=== PATIENT | male | born 1955 | race African-American/Black ===

== ENCOUNTER 2016-07-04 09:34 | Emergency (ER) | payer OTHER ==
[~2016-07-04] VITALS: Ht 188 cm; Wt 90.7 kg
[~2016-07-04 09:34] MED LIST: IBUPROFEN800 MG ORAL; KEFLEX500 MG ORAL; LEVAQUIN750 MG ORAL; PERCOCET 5-3251 EACH ORAL; PROMETHAZINE-C118 M1 ORAL
[2016-07-04 09:51] VITALS: BP 108/62
--- NOTE | 2016-07-04 10:03 | Emergency Room Report ---
History of Present Illness General Chief Complaint: General Complaint Source: Patient Present Illness HPI Patient presents with complaints of a sensation of a draining sensation in the left upper chest Denies any pain or heaviness denies any shortness of breath Denies any fall or trauma Patient reports sensation of something liquid trickling down Points to the left upper chest area Ongoing for the past 3-4 days denies any fevers or chills denies any cough denies any medication Allergies: Coded Allergies: No Known Allergies (Unverified , 07/03/13) Patient History Past Medical History: see triage record Pertinent Family History: none Reviewed Nursing Documentation: PMH: Agreed, PSxH: Agreed Nursing Documentation-PMH Past Medical History: No History, Except For Hx Hypertension: Yes Hx Asthma: Yes Review of Systems All Other Systems: negative except mentioned in HPI Physical Exam Vital Signs Date Time Temp Pulse Resp B/P Pulse Ox O2 Delivery O2 Flow Rate FiO2 07/04/16 09:42 98.1 74 18 114/75 96 Room Air Sp02 EP Interpretation: reviewed, normal General Appearance: well appearing, no apparent distress Head: normocephalic, atraumatic Eyes: bilateral eye EOMI, bilateral eye PERRL ENT: hearing grossly normal, normal pharynx, TMs + canals normal, uvula midline Neck: full range of motion, supple, no meningismus, no bony tend Respiratory: lungs clear, normal breath sounds, no rhonchi, no respiratory distress, no retraction, no accessory muscle use Cardiovascular #1: normal peripheral pulses, regular rate, rhythm, no edema, no gallop, no JVD, no murmur Gastrointestinal: normal bowel sounds, non tender, soft, no mass, no organomegaly, non-distended, no guarding, no hernia, no pulsatile mass, no rebound Genitourinary: no CVA tenderness Musculoskeletal: normal inspection Neurologic: oriented x3, responsive, reimbursement manager III-XII nml as tested, motor strength/ tone normal, sensory intact Psychiatric: mood/affect normal Skin: normal color, no rash, warm/dry, palpation normal Lymphatic: normal inspection, no adenopathy Medical Decision Making Diagnostic Impression: Primary Impression: Chest pain ER Course Given the patient's complaints on presentation chest x-ray imaging was obtained along with EKG EKG was normal chest x-ray does not show any cavitating or any other lesions patient remains fairly asymptomatic I did not feel that any further blood work or imaging was required and the patient will have close outpatient followup EKG Diagnostic Results Rate: normal Rhythm: NSR ST Segments: no acute changes Rhythm Strip Diag. Results EP Interpretation: yes Rate: 77 Rhythm: NSR, no PVC's, no ectopy Chest X-Ray Diagnostic Results EP Interpretation: Yes Findings: no consolidation, no effusion, no pneumothorax Number of Views: 1 Last Vital Signs Date Time Temp Pulse Resp B/P Pulse Ox O2 Delivery O2 Flow Rate FiO2 07/04/16 09:51 98.5 68 18 108/62 98 Room Air Status: improved Disposition: HOME, SELF-CARE Condition: Improved Additional Instructions: Patient is provided with the discharge instructions notified to follow up with primary doctor in the next 2-3 days otherwise return to the er with any worsening symptoms. MELONY LIMA D.O. Jul 04, 2016 10:03
--- NOTE | 2016-07-04 10:40 | Diagnostic Imaging Report ---
Indication: Chest pain Technique: XRAY CHEST 1 V Comparison: 07/03/13 Findings: Cardiomediastinal silhouette is stable. There is no consolidation or pleural effusion. Osseous structures are stable. Impression: No acute cardiopulmonary disease.
[2016-07-04 11:03] VITALS: BP 110/60
--- NOTE | 2016-07-06 19:07 | Cardiology Report ---
APPROVED REPORT EKG Measurement Heart [id number] Normal sinus rhythm Normal ECG
== END 2016-07-04 11:03 | disposition home or self-care (01) ==
LOC: EMR 10:08
DX: R07.9 Chest pain, unspecified (principal); I10 Essential (primary) hypertension; J45.909 Unspecified asthma, uncomplicated
CPT/HCPCS: 71010; 93005; 99283

== ENCOUNTER 2016-12-07 16:10 | Emergency (ER) | payer OTHER ==
[~2016-12-07] VITALS: Ht 188 cm; Wt 90.7 kg
[2016-12-07 16:33] VITALS: BP 106/69
--- NOTE | 2016-12-07 16:55 | Emergency Room Report ---
History of Present Illness General Chief Complaint: Male Urogenital Problems Source: Patient Present Illness HPI 60-year-old male presents emergency department complaining of clear penile discharge and discomfort with urination x5 days. Patient states he had recent unprotected intercourse with 2 new sexual partners. Patient denies fevers chills, nausea, vomiting, testicular pain, penile lesions, tender palpable lymph nodes, abdominal pain, rashes or joint pain. Patient denies dysuria and describes his discomfort as "weird" sensation. Denies hematuria. he reports history of HIV he states his viral load is undetectable he cannot recall his last CD4 count however he states that it was really good and that he sees his infectious disease doctor every 3 months. Allergies: Coded Allergies: No Known Allergies (Unverified , 07/03/13) Patient History Past Medical History: see triage record Past Surgical History: none Pertinent Family History: none Immunizations: UTD Reviewed Nursing Documentation: PMH: Agreed, PSxH: Agreed Nursing Documentation-PMH Hx Hypertension: Yes Hx Asthma: Yes Review of Systems All Other Systems: negative except mentioned in HPI Physical Exam Vital Signs Date Time Temp Pulse Resp B/P Pulse Ox O2 Delivery O2 Flow Rate FiO2 12/07/16 16:23 98.1 68 15 106/69 96 Room Air Sp02 EP Interpretation: reviewed, normal General Appearance: no apparent distress, alert, GCS 15, non-toxic Head: normocephalic, atraumatic Eyes: bilateral eye PERRL, bilateral eye normal inspection ENT: hearing grossly normal, normal pharynx, no angioedema, normal voice Neck: full range of motion, supple/symm/no masses Respiratory: lungs clear, normal breath sounds, speaking full sentences Cardiovascular #1: regular rate, rhythm, no edema Rectal: deferred Genitourinary: normal inspection, no CVA tenderness, penis normal, scrotum normal, other - clear d/c noted from the penis, abas EMT was male chapperone Musculoskeletal: back normal, gait/station normal, normal range of motion, non- tender Neurologic: alert, oriented x3, responsive, motor strength/tone normal, sensory intact, speech normal Psychiatric: judgement/insight normal, memory normal, mood/affect normal Skin: normal color, no rash, warm/dry, well hydrated Lymphatic: no adenopathy Medical Decision Making PA Attestation Dr. fried is my supervising Physician whom patient management has been discussed with. Diagnostic Impression: Primary Impression: Urethritis ER Course Pt. presents to the ED c/o penile d/c x 1 week, HIV pos. recent unprotected . Ddx considered but are not limited to UTi , STI, G & C, trichomonas, urethritis Vital signs: are WNL, pt. is afebrile H&PE are most consistent with urethritis ORDERS: - UA: few bacteria, no appreciable WBC's or leukocytes. - Urine G & C: Pending ED INTERVENTIONS: -250mg Rocephin IM DISCHARGE: At this time pt. is stable for d/c to home. Will provide printed patient care instructions, and any necessary prescriptions. Care plan and follow up instructions have been discussed with the patient prior to discharge. Labs Test 12/07/16 16:33 Urine Color Yellow Urine Appearance Clear Urine pH 6 (4.5-8.0) Urine Specific [place] 1.015 (1.005-1.035) Urine Protein Negative (NEGATIVE) Urine Glucose (UA) Negative (NEGATIVE) Urine Ketones Negative (NEGATIVE) Urine Occult Blood 1+ (NEGATIVE) Urine Nitrite Negative (NEGATIVE) Urine Bilirubin Negative (NEGATIVE) Urine Urobilinogen 1 MG/DL (0.0-1.0) Urine Leukocyte Esterase 2+ (NEGATIVE) Urine RBC 0-2 /HPF (0 - 0) Urine WBC 2-4 /HPF (0 - 0) Urine Squamous Epithelial Cells None /LPF (NONE/OCC) Urine Bacteria Few /HPF (NONE) Last Vital Signs Date Time Temp Pulse Resp B/P Pulse Ox O2 Delivery O2 Flow Rate FiO2 12/07/16 16:33 98.1 15 106/69 96 Room Air 12/07/16 16:23 68 Disposition: HOME, SELF-CARE Condition: Stable Scripts Doxycycline Hyclate* (VIBRAMYCIN*) 100 Mg Capsule 100 MG ORAL EVERY 12 HOURS for 7 Days, #14 CAP 0 Refills Prov: Madison Russell 12/07/16 Patient Instructions: Urethritis, Adult Additional Instructions: Take medications as directed. Follow up with PCP in 3-5 days Return sooner to ED if new symptoms occur, or current symptoms become worse. - Please note that this Emergency Department Report was dictated using [employer] covering printer technology software, occasionally this can lead to erroneous entry secondary to interpretation by the dictation equipment. Madison Russell Dec 07, 2016 16:54
[2016-12-07 16:58] LABS: APPEARANCE,URINE CLEAR; KETONES,URINE NEGATIVE (NEGATIVE); LEUKOCYTE ESTERASE ,URINE 2+ (NEGATIVE); NITRITE,URINE NEGATIVE (NEGATIVE); PH,URINE 6 (4.5-8.0); PROTEIN,URINE NEGATIVE (NEGATIVE); UROBILINOGEN,URINE 1 MG/DL (0.0-1.0)
[2016-12-07] MEDS ORDERED: Lidocaine 1% MPF 10mg/ml 5ml ONE (17:06)
[2016-12-07 17:20] LABS: BACTERIA,URINE FEW /HPF; RBC,URINE 0-2 /HPF (0 - 0)
[2016-12-07] MEDS ORDERED: VIBRAMYCIN100 MG ORAL (17:28)
[2016-12-07 17:33] VITALS: BP 106/69
== END 2016-12-07 17:33 | disposition home or self-care (01) ==
LOC: EMR 16:52
DX: N34.2 Other urethritis (principal); I10 Essential (primary) hypertension; J45.909 Unspecified asthma, uncomplicated
CPT/HCPCS: 81003; 87491; 87590; 96372; 99283; J0696

== ENCOUNTER 2017-04-28 12:10 | Emergency (ER) | payer OTHER ==
[~2017-04-28] VITALS: Ht 188 cm; Wt 90.7 kg
[~2017-04-28 12:10] MED LIST changes: +VIBRAMYCIN100 MG ORAL
[2017-04-28 12:28] VITALS: BP 99/67
[2017-04-28] MEDS ORDERED: PREDNISONE20 MG ORAL (13:05)
[2017-04-28] MEDS ORDERED: PROAIR HFA8.5 GM INH (13:05)
[2017-04-28] MEDS ORDERED: PROMETHAZINE-D118 ML ORAL (13:05)
[2017-04-28 13:11] VITALS: BP 99/67
--- NOTE | 2017-04-28 14:02 | Diagnostic Imaging Report ---
Indication: COUGH Technique: One view of the chest Comparison: 07/04/2016 Findings: Lungs and pleural spaces are clear. Normal heart size. Tortuous aorta Impression: Negative
--- NOTE | 2017-04-28 15:44 | Emergency Room Report ---
History of Present Illness General Chief Complaint: Upper Respiratory Illness Source: Patient Present Illness HPI The patient is a 61-year-old male presenting for cough. He admits to history of asthma. He states that this has been ongoing for the past 3 days. Described as a dry cough. He has tried Mucinex which has not helped. He states that he has albuterol at home but has not used it. Pain is an 8/10 dull ache to the mid chest and occurs during coughing only. Pain does not radiate. He denies any other symptoms including nausea, vomiting, fever, chills, sore throat, hemoptysis Allergies: Coded Allergies: No Known Allergies (Unverified , 07/03/13) Patient History Past Medical History: see triage record Pertinent Family History: none Reviewed Nursing Documentation: PMH: Agreed, PSxH: Agreed Nursing Documentation-PMH Hx Hypertension: Yes Hx Asthma: Yes Review of Systems All Other Systems: negative except mentioned in HPI Physical Exam Vital Signs Date Time Temp Pulse Resp B/P (MAP) Pulse Ox O2 Delivery O2 Flow Rate FiO2 04/28/17 12:21 98.1 81 14 99/67 96 Room Air Sp02 EP Interpretation: reviewed, normal General Appearance: no apparent distress, alert, GCS 15, non-toxic Head: normocephalic, atraumatic Eyes: bilateral eye normal inspection, bilateral eye PERRL ENT: hearing grossly normal, normal pharynx, no angioedema, normal voice Neck: full range of motion, supple/symm/no masses Respiratory: chest non-tender, normal breath sounds, rhonchi - bilat, speaking full sentences Cardiovascular #1: regular rate, rhythm, no edema Musculoskeletal: back normal, gait/station normal, normal range of motion, non- tender Neurologic: alert, oriented x3, responsive, motor strength/tone normal, sensory intact, speech normal Psychiatric: judgement/insight normal, memory normal, mood/affect normal, no suicidal/homicidal ideation Skin: normal color, no rash, warm/dry, well hydrated Medical Decision Making PA Attestation Dr. Norris is my supervising physician. Patient management was discussed with my supervising physician Diagnostic Impression: Primary Impression: Bronchitis ER Course The patient is a 61-year-old male presenting for cough Differential diagnosis include but not limited to pharyngitis, sinusitis, AOM, bronchitis, PNA PE: afebrile. No tachypnea. No apparent distress. No TTP over maxillary or frontal sinuses. Lungs: diffuse rhonchi. No accessory muscle use. No resp distress Heart: RRR, no abnormal heart sounds Ears: external auditory canal clear. Non erythematous. Bilat TM intact. Cone of light present bilat. No bulging of TM. No serous fluid seen. no nasal D/C Nor cervical lymphad No tonsillar exudate. Uvula midline.Oropharynx non erythematous The patient will be discharged home with a prescription for albuterol, prednisone, and cough medication and will FU with PMD. ER precautions given Chest X-Ray Diagnostic Results Chest X-Ray Diagnostic Results : Chest X-Ray Ordered: Yes # of Views/Limited/Complete: 1 View Indication: Other - cough EP Interpretation: Yes JACOB Xray: Interpretation reviewed, by supervising MD, and agrees with findings. Interpretation: no consolidation, no effusion, no pneumothorax, no acute cardiopulmonary disease Impression: No acute disease Electronically Signed by: Haroon Zarate PA-C Last Vital Signs Date Time Temp Pulse Resp B/P (MAP) Pulse Ox O2 Delivery O2 Flow Rate FiO2 04/28/17 13:11 98.1 14 99/67 96 Room Air 04/28/17 12:28 81 Status: improved Disposition: HOME, SELF-CARE Condition: Improved Scripts D-Methorphan Hb/Prometh Hcl* (PROMETHAZINE-DM SYRUP*) 118 Ml Syrup 5 ML ORAL Q6H Y for For Cough, #118 ML 0 Refills Prov: TERZIAN,HAROON P.A. 04/28/17 Albuterol Sulfate* (PROAIR HFA*) 8.5 Gm Hfa.aer.ad 2 PUFFS INH Q6H, #8.5 GM 0 Refills Prov: TERZIAN,HAROON P.A. 04/28/17 Prednisone* (PREDNISONE*) 20 Mg Tablet 40 MG ORAL DAILY, #10 TAB Prov: TERZIAN,HAROON P.A. 04/28/17 Referrals: NON PHYSICIAN (PCP) Patient Instructions: Acute Bronchitis Additional Instructions: I discussed my findings with the patient. All questions and concerns have been answered. Treatment and medication compliance have been addressed. I advised the patient that they need to follow up with PMD in 3-5 days. Return to ED if pain remains or worsens, cough worsens or remains, you notice blood in your sputum, you notice wheezing, you experience a fever, or if needed for any reason. Patient verbalized understanding of discharge instructions. HAROON ZARATE Apr 28, 2017 15:44
== END 2017-04-28 13:24 | disposition home or self-care (01) ==
LOC: EMR 12:46
DX: J45.909 Unspecified asthma, uncomplicated (principal)
CPT/HCPCS: 71010; 99284

== ENCOUNTER 2017-05-13 15:50 | Emergency (ER) | payer OTHER ==
[~2017-05-13] VITALS: Ht 188 cm; Wt 90.7 kg
[~2017-05-13 15:50] MED LIST changes: +PREDNISONE20 MG ORAL; +PROAIR HFA8.5 GM INH; +PROMETHAZINE-D118 ML ORAL
[2017-05-13 16:14] VITALS: BP 103/67
[2017-05-13] MEDS ORDERED: CEPHALEXIN500 MG ORAL (17:13)
[2017-05-13] MEDS ORDERED: BACTRIM DS TAB1 EAC1 ORAL (17:13)
[2017-05-13 17:18] VITALS: BP 116/71
[2017-05-13] MEDS ORDERED: DESCOVY 200-251 EACH PO (17:25)
[2017-05-13] MEDS ORDERED: ASPIR 8181 MG ORAL (17:25)
[2017-05-13] MEDS ORDERED: AMLODIPINE BESY10 MG ORAL (17:25)
[2017-05-13] MEDS ORDERED: PREZCOBIX 8001 EACH PO (17:25)
[2017-05-13] MEDS ORDERED: DAILY VITE1 EACH ORAL (17:25)
[2017-05-13] MEDS ORDERED: LISINOPRIL20 MG ORAL (17:25)
--- NOTE | 2017-05-13 22:39 | Emergency Room Report ---
History of Present Illness General Chief Complaint: Skin Rash/Abscess Source: Patient Present Illness HPI The patient is a 61-year-old male presenting for possible insect bite. He states that he noticed pain and swelling to the skin on his abdomen yesterday. He did not see any insect. He denies any known injury to the area appeared. pain is an 8/10 dull ache and does not radiate. He denies other symptoms including N, V, F, chills, diarrhea, constipation Allergies: Coded Allergies: No Known Allergies (Unverified , 07/03/13) Patient History Past Medical History: see triage record Pertinent Family History: none Reviewed Nursing Documentation: PMH: Agreed, PSxH: Agreed Nursing Documentation-PMH Hx Hypertension: Yes Hx Asthma: Yes Review of Systems All Other Systems: negative except mentioned in HPI Physical Exam Vital Signs Date Time Temp Pulse Resp B/P (MAP) Pulse Ox O2 Delivery O2 Flow Rate FiO2 05/13/17 16:14 98.1 84 20 103/67 98 05/13/17 16:14 Room Air Sp02 EP Interpretation: reviewed, normal General Appearance: no apparent distress, alert, GCS 15, non-toxic Head: normocephalic, atraumatic Eyes: bilateral eye normal inspection, bilateral eye PERRL ENT: hearing grossly normal, normal pharynx, no angioedema, normal voice Neck: full range of motion, supple/symm/no masses Respiratory: chest non-tender, lungs clear, normal breath sounds, speaking full sentences Cardiovascular #1: regular rate, rhythm, no edema Gastrointestinal: normal bowel sounds, soft, non-distended, no guarding, tenderness - TTP over the mid abdomen where abscess is Rectal: deferred Musculoskeletal: back normal, gait/station normal, normal range of motion, non- tender, calf tenderness Neurologic: alert, oriented x3, responsive, motor strength/tone normal, sensory intact, speech normal Psychiatric: judgement/insight normal, memory normal, mood/affect normal, no suicidal/homicidal ideation Skin: rash - Mid abdomen there is 2cm induration, erythema with central elevation. TTP Medical Decision Making PA Attestation Dr. Browning is my supervising physician. Patient management was discussed with my supervising physician Diagnostic Impression: Primary Impression: Abscess ER Course The patient is a 61-year-old male presenting for possible insect bite Ddx considered include but not limited to insect bite, contact dermatitis, eczema, cellulitis PE: Afebrile. NAD Skin: There is a 2 cm indurated area to the mid right abdomen. Tender to palpation. There is a central elevation. No discharge. Otherwise abdomen is soft and nontender The patient is discharged home and will be treated with antibiotics. He is given indication to return for incision and drainage ER precautions are given Last Vital Signs Date Time Temp Pulse Resp B/P (MAP) Pulse Ox O2 Delivery O2 Flow Rate FiO2 05/13/17 17:18 98.1 81 20 116/71 100 Room Air Status: improved Disposition: HOME, SELF-CARE Condition: Improved Scripts Trimethoprim/Sulfamethoxazole 160/800* (BACTRIM DS TABLET*) 1 Each Tablet 1 TAB ORAL TWICE A DAY, #14 TAB Prov: TAZ ZARATE 05/13/17 Cephalexin* (KEFLEX*) 500 Mg Capsule 500 MG ORAL EVERY 12 HOURS, #14 CAP 0 Refills Prov: TAZ ZARATE 05/13/17 Referrals: [facility],REFERRING (PCP) Patient Instructions: Abscess Additional Instructions: I discussed my findings with the patient. All questions and concerns have been answered. Treatment and medication compliance have been addressed. I advised the patient that they need to follow up with PMD in 3-5 days. Return to ED if symptoms worsen, new symptoms arise, or if needed for any reason. Patient verbalized understanding of discharge instructions. TAZ ZARATE May 13, 2017 22:39
== END 2017-05-13 17:19 | disposition home or self-care (01) ==
LOC: EMR 17:09
DX: L02.211 Cutaneous abscess of abdominal wall (principal); I10 Essential (primary) hypertension
CPT/HCPCS: 99283

== ENCOUNTER 2017-05-24 10:54 | Emergency (ER) | payer OTHER ==
[~2017-05-24] VITALS: Ht 188 cm; Wt 93.0 kg
[~2017-05-24 10:54] MED LIST changes: +AMLODIPINE BESY10 MG ORAL; +ASPIR 8181 MG ORAL; +BACTRIM DS TAB1 EAC1 ORAL; +CEPHALEXIN500 MG ORAL; +DAILY VITE1 EACH ORAL; +DESCOVY 200-251 EACH PO; +LISINOPRIL20 MG ORAL; +PREZCOBIX 8001 EACH PO
[2017-05-24 11:22] VITALS: BP 130/89
[2017-05-24 11:55] LABS: APPEARANCE,URINE CLEAR; KETONES,URINE NEGATIVE (NEGATIVE); LEUKOCYTE ESTERASE ,URINE 1+ (NEGATIVE); NITRITE,URINE NEGATIVE (NEGATIVE); PH,URINE 8 (4.5-8.0); PROTEIN,URINE NEGATIVE (NEGATIVE); UROBILINOGEN,URINE NORMAL MG/DL (0.0-1.0)
[2017-05-24 12:07] LABS: BACTERIA,URINE OCCASIONAL /HPF; RBC,URINE 0-2 /HPF (0 - 0); SQUAMOUS EPITHELIAL CELL,UR OCCASIONAL /LPF (NONE/OCC)
[2017-05-24] MEDS ORDERED: KEFLEX500 MG ORAL (12:40)
[2017-05-24] MEDS ORDERED: DOXYCYCLINE MO100 MG ORAL (13:16)
[2017-05-24 13:20] VITALS: BP 124/68
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
== END 2017-05-24 13:20 | disposition home or self-care (01) ==
LOC: EMR 11:20
DX: S00.83XA Contusion of other part of head, initial encounter (principal); N34.2 Other urethritis; I10 Essential (primary) hypertension; J45.909 Unspecified asthma, uncomplicated; W50.0XXA Accidental hit or strike by another person, initial encounter; Y92.9 Unspecified place or not applicable
CPT/HCPCS: 70480; 81003; 99284

== ENCOUNTER 2017-09-20 09:26 | Emergency (ER) | payer OTHER ==
[~2017-09-20] VITALS: Ht 188 cm; Wt 93.0 kg
[~2017-09-20 09:26] MED LIST changes: +DOXYCYCLINE MO100 MG ORAL
[2017-09-20] MEDS ORDERED: DOXYCYCLINE MO100 MG ORAL (09:42)
[2017-09-20] MEDS ORDERED: Lidocaine 1% MPF 10mg/ml 5ml INJ ONE (09:45)
[2017-09-20 09:52] LABS: APPEARANCE,URINE CLEAR; BILIRUBIN, URINE NEGATIVE (NEGATIVE); GLUCOSE, URINE (UA) NEGATIVE (NEGATIVE); KETONES,URINE NEGATIVE (NEGATIVE); LEUKOCYTE ESTERASE ,URINE 2+ (NEGATIVE); NITRITE,URINE NEGATIVE (NEGATIVE); PH,URINE 5 (4.5-8.0); PROTEIN,URINE NEGATIVE (NEGATIVE); UROBILINOGEN,URINE NORMAL MG/DL (0.0-1.0)
[2017-09-20 09:54] VITALS: BP 117/84
[2017-09-20 09:54] LABS: COLOR,URINE YELLOW
--- NOTE | 2017-09-23 14:29 | Emergency Room Report ---
History of Present Illness General Chief Complaint: Male Urogenital Problems Source: Patient Present Illness HPI Patient is a 61-year-old male presented after increased dysuria. Patient said he had recent sexual intercourse and had a condom break. He stated after that he been having increased dysuria. He denies any hematuria. He denies any urinary hesitancy. He denies any urethral discharge. He denies vomiting or flank pain. Allergies: Coded Allergies: No Known Allergies (Unverified , 07/03/13) Patient History Past Medical History: see triage record Reviewed Nursing Documentation: PMH: Agreed; PSxH: Agreed Nursing Documentation-PMH Hx Hypertension: Yes Hx Asthma: Yes Review of Systems All Other Systems: negative except mentioned in HPI Physical Exam Vital Signs Date Time Temp Pulse Resp B/P (MAP) Pulse Ox O2 Delivery O2 Flow Rate FiO2 09/20/17 09:29 97.1 78 20 117/84 96 Room Air 97.2 General Appearance: well appearing, no apparent distress, alert, GCS 15 Head: normocephalic, atraumatic ENT: hearing grossly normal, normal voice Neck: full range of motion, supple Respiratory: no respiratory distress, speaking full sentences Gastrointestinal: normal inspection, non tender, soft Genitourinary: no CVA tenderness Musculoskeletal: no calf tenderness Neurologic: normal inspection, alert, oriented x3, responsive, job press operator III-XII nml as tested, motor strength/tone normal, normal gait Psychiatric: normal inspection, mood/affect normal Skin: no rash Medical Decision Making Diagnostic Impression: Primary Impression: Urethritis ER Course Patient presented for dysuria. Differential diagnosis included was not limited to appendicitis, urinary tract infection,urethritis, herpes among others. The because patient's history patient will be empiric treated for bacterial urethritis. The patient is advised to follow up with primary care doctor in 1- 2 days. Patient is advised to return if any worsening condition or if any changes in status that are concerning. This report is dictated with blabfeed anatomical embalmer software which may occasionally lead to discrepancies related to use of this software. Labs Test 09/20/17 09:33 Urine Color Yellow Urine Appearance Clear Urine pH 5 (4.5-8.0) Urine Specific [place] 1.015 (1.005-1.035) Urine Protein Negative (NEGATIVE) Urine Glucose (UA) Negative (NEGATIVE) Urine Ketones Negative (NEGATIVE) Urine Occult Blood 1+ (NEGATIVE) Urine Nitrite Negative (NEGATIVE) Urine Bilirubin Negative (NEGATIVE) Urine Urobilinogen Normal MG/DL (0.0-1.0) Urine Leukocyte Esterase 2+ (NEGATIVE) Urine RBC 0-2 /HPF (0 - 0) Urine WBC 2-4 /HPF (0 - 0) Urine Squamous Epithelial Cells Occasional /LPF Urine Bacteria Few /HPF (NONE) Last Vital Signs Date Time Temp Pulse Resp B/P (MAP) Pulse Ox O2 Delivery O2 Flow Rate FiO2 09/20/17 09:54 97.2 20 117/84 96 Room Air 97.2 09/20/17 09:29 78 Status: improved Disposition: HOME, SELF-CARE Condition: Stable Scripts Doxycycline Monohydrate* (DOXYCYCLINE MONOHYDRATE*) 100 Mg Capsule 100 MG ORAL Q12H, #14 CAP 0 Refills Prov: Jm Rivas 09/20/17 Referrals: [facility],REFERRING (PCP) Patient Instructions: Urethritis, Adult mJ Rivas Sep 23, 2017 14:29
== END 2017-09-20 09:56 | disposition home or self-care (01) ==
LOC: EMR 09:43
DX: N34.2 Other urethritis (principal); I10 Essential (primary) hypertension; J45.909 Unspecified asthma, uncomplicated
CPT/HCPCS: 81003; 96372; 99283; J0696

== ENCOUNTER 2018-08-03 14:30 | Emergency (ER) | payer OTHER ==
[~2018-08-03] VITALS: Ht 188 cm; Wt 90.7 kg
[2018-08-03 14:30] VITALS: BP 130/65
--- NOTE | 2018-08-03 14:39 | NUR ---
ED Nurse Note: walked in to ED due to painful urination since today. Rating the pain a 8/10. A + O x4. Ambulatory.
[2018-08-03] MEDS ORDERED: UNOBMED (14:42)
--- NOTE | 2018-08-03 14:51 | Emergency Room Report ---
History of Present Illness General Chief Complaint: Male Urogenital Problems Source: Medical Record Present Illness HPI Patient is a 62-year-old male presented after increased dysuria as well as frequent urination. Denies any testicular swelling. He reports having recent unprotected sex. Patient states that he is HIV positive and has not had any prior history of herpes. patient reports having undetectable viral load and normal CD4 count. Allergies: Coded Allergies: No Known Allergies (Unverified , 07/03/13) Patient History Past Medical History: see triage record Reviewed Nursing Documentation: PMH: Agreed; PSxH: Agreed Nursing Documentation-PMH Past Medical History: No History, Except For Hx Hypertension: Yes Hx Asthma: Yes Review of Systems All Other Systems: negative except mentioned in HPI Physical Exam Vital Signs Date Time Temp Pulse Resp B/P (MAP) Pulse Ox O2 Delivery O2 Flow Rate FiO2 08/03/18 14:39 98.2 89 18 127/89 99 Room Air General Appearance: well appearing, no apparent distress, alert, GCS 15, non- toxic Head: normocephalic, atraumatic ENT: hearing grossly normal, normal voice Neck: full range of motion, supple Respiratory: no respiratory distress, speaking full sentences Gastrointestinal: normal inspection Musculoskeletal: no calf tenderness Neurologic: normal inspection, alert, oriented x3, responsive, normal gait Psychiatric: mood/affect normal Skin: no rash Medical Decision Making Diagnostic Impression: Primary Impression: Urethritis ER Course Patient presented for dysuria. Differential diagnosis included was not limited to appendicitis, urinary tract infection, urethritis, herpes among others. Patient was noted to have recent unprotected sex and symptoms consistent with a urethritis. Patient will be given IM antibiotics as well as prescription for doxycycline. Patient advised to follow-up for further STD testing. Last Vital Signs Date Time Temp Pulse Resp B/P (MAP) Pulse Ox O2 Delivery O2 Flow Rate FiO2 08/03/18 14:39 98.2 89 18 127/89 99 Room Air Status: improved Disposition: HOME, SELF-CARE Condition: Stable Jm Rivas MD Aug 03, 2018 14:51
[2018-08-03] MEDS ORDERED: DOXYCYCLINE MO100 MG ORAL (14:52)
[2018-08-03] MEDS ORDERED: Lidocaine 1% MPF 10mg/ml 5ml INJ ONE (15:00)
--- NOTE | 2018-08-03 15:18 | NUR ---
ER DISCHARGE NOTE: Patient is cleared to be discharged per ERMD, pt is aox4, on room air, with stable vital signs. pt was given dc and prescription instructions, pt was able to verbalize understanding, pt id band removed without complications. pt is able to ambulate with steady gait. pt took all belongings.
[2018-08-03 15:29] VITALS: BP 130/87
[2018-08-03 15:32] LABS: APPEARANCE,URINE CLEAR; BILIRUBIN, URINE NEGATIVE (NEGATIVE); GLUCOSE, URINE (UA) NEGATIVE (NEGATIVE); KETONES,URINE NEGATIVE (NEGATIVE); LEUKOCYTE ESTERASE ,URINE 2+ (NEGATIVE); NITRITE,URINE NEGATIVE (NEGATIVE); PH,URINE 6 (4.5-8.0); PROTEIN,URINE NEGATIVE (NEGATIVE); UROBILINOGEN,URINE 1 MG/DL (0.0-1.0)
[2018-08-03 15:40] LABS: COLOR,URINE YELLOW
== END 2018-08-03 15:18 | disposition home or self-care (01) ==
LOC: EMR 15:11
DX: N34.2 Other urethritis (principal); I10 Essential (primary) hypertension; J45.909 Unspecified asthma, uncomplicated
CPT/HCPCS: 81003; 96372; 96374; 99284; J0696

== ENCOUNTER 2018-10-28 09:12 | Emergency (ER) | payer OTHER ==
[~2018-10-28] VITALS: Ht 188 cm; Wt 86.2 kg
[~2018-10-28 09:12] MED LIST changes: +UNOBMED
[2018-10-28 09:31] VITALS: BP 126/89
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
[2018-10-28] MEDS ORDERED: IBUPROFEN600 MG ORAL (10:23)
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
[2018-10-28 10:55] VITALS: BP 126/89
--- NOTE | 2018-10-28 10:57 | NUR ---
ER DISCHARGE NOTE:head CT was done Patient is cleared to be discharged per ERMD, pt is aox4, on room air, with stable vital signs. pt was given dc and prescription instructions, pt was able to verbalize understanding, pt is able to ambulate with steady gait. pt took all belongings.
== END 2018-10-28 10:57 | disposition home or self-care (01) ==
LOC: EMR 09:50
DX: S00.83XA Contusion of other part of head, initial encounter (principal); Y04.2XXA Assault by strike against or bumped into by another person, initial encounter; Y92.9 Unspecified place or not applicable; I10 Essential (primary) hypertension; J45.909 Unspecified asthma, uncomplicated
CPT/HCPCS: 70450; 99284

== ENCOUNTER 2019-02-22 16:13 | Emergency (ER) | payer OTHER ==
[~2019-02-22] VITALS: Ht 188 cm; Wt 90.7 kg
[~2019-02-22 16:13] MED LIST changes: +IBUPROFEN600 MG ORAL
--- NOTE | 2019-02-22 16:29 | NUR ---
ED Nurse Note:pt. came with c/o left hip w/o injury and painfull urinations for 2 days, urine sent to labs
[2019-02-22 16:30] VITALS: BP 112/82
--- NOTE | 2019-02-22 16:42 | NUR ---
ED Nurse Note: Patient returned ftrom xray
--- NOTE | 2019-02-22 16:43 | NUR ---
ED Nurse Note:x-ray done
[2019-02-22 16:51] LABS: APPEARANCE,URINE CLEAR; BILIRUBIN, URINE NEGATIVE (NEGATIVE); GLUCOSE, URINE (UA) NEGATIVE (NEGATIVE); KETONES,URINE NEGATIVE (NEGATIVE); LEUKOCYTE ESTERASE ,URINE 1+ (NEGATIVE); NITRITE,URINE NEGATIVE (NEGATIVE); PH,URINE 7 (4.5-8.0); PROTEIN,URINE NEGATIVE (NEGATIVE); UROBILINOGEN,URINE 4 MG/DL (0.0-1.0)
[2019-02-22 17:00] LABS: COLOR,URINE YELLOW
--- NOTE | 2019-02-22 17:12 | Diagnostic Imaging Report ---
Indication: Left hip pain Technique: 2 views of the left, one view the pelvis hip Comparison: none Findings: No acute fractures. No dislocations. The joint spaces are preserved. Impression: No acute process
--- NOTE | 2019-02-22 17:14 | Emergency Room Report ---
History of Present Illness General Chief Complaint: Pain Source: Patient (Madison Russell) Present Illness HPI 63 YO Male presents to the ED c/o 12/21 in severity Dysuria x 2 Days. He reports recent unprotected intercourse and describes a condom breaking. Patient states he had symptoms shortly after. Patient reports that also right after intercourse he began to have left hip pain. Patient denies trauma or fall , bruising, erythema or warmth. Patient denies swelling. He denies Abdominal pain or tenderness. Denies urgency or hematuria. Patient denies genital lesions , rashes, testicular pain or swelling, penile discharge or swollen tender lymph nodes. Patient is HIV positive he reports that his counts are normal. He denies fevers or chills. (Madison Russell) Allergies: Coded Allergies: No Known Allergies (Unverified , 07/03/13) Patient History Past Medical History: HIV Past Surgical History: none Pertinent Family History: none Reviewed Nursing Documentation: PMH: Agreed; PSxH: Agreed (Madison Russell) Nursing Documentation-PMH Past Medical History: No History, Except For Hx Hypertension: Yes Hx Asthma: Yes (Madison Russell) Review of Systems All Other Systems: negative except mentioned in HPI (Madison Russell) Physical Exam Vital Signs Date Time Temp Pulse Resp B/P (MAP) Pulse Ox O2 Delivery O2 Flow Rate FiO2 02/22/19 16:14 97.7 86 18 112/82 (92) 98 Room Air Sp02 EP Interpretation: reviewed, normal General Appearance: no apparent distress, alert, GCS 15, non-toxic Head: normocephalic, atraumatic Eyes: bilateral eye normal inspection, bilateral eye PERRL ENT: hearing grossly normal, normal voice Neck: full range of motion Respiratory: lungs clear, normal breath sounds, speaking full sentences Cardiovascular #1: regular rate, rhythm Gastrointestinal: normal bowel sounds, non tender, soft, non-distended, no guarding Rectal: deferred Genitourinary: normal inspection, no CVA tenderness, deferred - pt. declines genital exam/ denies d/c or symptoms. Musculoskeletal: back normal, gait/station normal, normal range of motion, tender - TTP to the lateral aspect of the Left hip, no bruises, swelling or obvious deformity. pt. able to bear weight. Neurologic: alert, oriented x3, responsive, motor strength/tone normal, sensory intact, normal gait, speech normal, grossly normal Psychiatric: judgement/insight normal Skin: no rash Lymphatic: no adenopathy (Madison Russell) Medical Decision Making PA Attestation Dr. Gaines Is my supervising Physician whom patient management has been discussed with. (Madison Russell) Diagnostic Impression: Primary Impression: Urethritis Additional Impression: Hip pain, left ER Course 63 YO Male presents to the ED c/o 12/21 in severity Dysuria x 2 Days. He reports recent unprotected intercourse and describes a condom breaking. Patient states he had symptoms shortly after. Patient reports that also right after intercourse he began to have left hip pain. Patient denies trauma or fall , bruising, erythema or warmth. Patient denies swelling. He denies Abdominal pain or tenderness. Denies urgency or hematuria. Patient denies genital lesions , rashes, testicular pain or swelling, penile discharge or swollen tender lymph nodes. Patient is HIV positive he reports that his counts are normal. He denies fevers or chills. Ddx considered but are not limited to UTi , Urethritis, LGV, STI, Stone, Cystitis, prostatitis Vital signs: are WNL, pt. is afebrile H&PE are most consistent with Urethritis ORDERS: - UA : RBC's and blood, no bacteria. - Left Hip X-ray : WNL- arthritic. ED INTERVENTIONS: -250mg Rocephin IM -I do not identify an emergent condition at this time. With current presentation , pt. is stable for close outpatient follow up and conservative treatment. D/ w pt. to return promptly to ED with worsening or new symptoms.- Pt. verbalizes' understanding and agreement with proposed treatment plan.proposed treatment plan. DISCHARGE: At this time pt. is stable for d/c to home. Will provide printed patient care instructions, and any necessary prescriptions. Care plan and follow up instructions have been discussed with the patient prior to discharge. Labs Test 02/22/19 16:21 Urine Color Yellow Urine Appearance Clear Urine pH 7 (4.5-8.0) Urine Specific [place] 1.005 (1.005-1.035) Urine Protein Negative (NEGATIVE) Urine Glucose (UA) Negative (NEGATIVE) Urine Ketones Negative (NEGATIVE) Urine Blood 5+ (NEGATIVE) Urine Nitrite Negative (NEGATIVE) Urine Bilirubin Negative (NEGATIVE) Urine Urobilinogen 4 MG/DL (0.0-1.0) Urine Leukocyte Esterase 1+ (NEGATIVE) Urine RBC 20-30 /HPF (0 - 0) Urine WBC 2-4 /HPF (0 - 0) Urine Squamous Epithelial Cells None /LPF (NONE/OCC) Urine Bacteria Few /HPF (NONE) (Madison Russell) Other X-Ray Diagnostic Results Other X-Ray Diagnostic Results : X-Ray ordered: Left Hip # of Views/Limited Vs Complete: 3 View Indication: Pain EP Interpretation: Yes PA Xray: Interpretation reviewed, by supervising MD, and agrees with findings. Interpretation: no dislocation, no soft tissue swelling, no fractures Impression: No acute disease Electronically Signed by: Madison Russell PA-C (Madison Russell) Other X-Ray Diagnostic Results : Electronically Signed by: Marleen Box documentation of Xray reviewed by me and is accurate, Gene Gaines MD (Gene Gaines MD) Last Vital Signs Date Time Temp Pulse Resp B/P (MAP) Pulse Ox O2 Delivery O2 Flow Rate FiO2 02/22/19 16:30 97.7 79 18 112/82 98 Room Air (Madison Rsusell) Disposition: HOME, SELF-CARE Condition: Stable Scripts Doxycycline Hyclate* (VIBRAMYCIN*) 100 Mg Capsule 100 MG ORAL EVERY 12 HOURS for 7 Days, #14 CAP 0 Refills Prov: Madison Russell 02/22/19 Patient Instructions: Urethritis, Adult Additional Instructions: Take medications as directed. Follow up with a Primary Care Provider in 3-5 days, even if your symptoms have resolved. --Please review list of primary care clinics, if you do not already have a primary care provider Return sooner to ED if new symptoms occur, or current symptoms become worse. - Please note that this Emergency Department Report was dictated using Taggablerevenue specialist technology software, occasionally this can lead to erroneous entry secondary to interpretation by the dictation equipment. Madison Russell Feb 22, 2019 17:14 Gene Gaines MD Feb 23, 2019 06:37
[2019-02-22] MEDS ORDERED: Phenazopyridine 200mg tab ORAL ONE (17:15)
[2019-02-22] MEDS ORDERED: Lidocaine 1% MPF 10mg/ml 5ml INJ ONE (17:15)
[2019-02-22] MEDS ORDERED: VIBRAMYCIN100 MG ORAL (17:16)
--- NOTE | 2019-02-22 17:26 | NUR ---
ED Nurse Note: Injection correction administered to the right upper outer quadrant of buttock.
--- NOTE | 2019-02-22 17:35 | NUR ---
ER DISCHARGE NOTE: Patient is cleared to be discharged per ERMD, pt is aox4, on room air, with stable vital signs. pt was given dc and prescription instructions, pt was able to verbalize understanding, pt is able to ambulate with steady gait. pt took all belongings.
[2019-02-22 17:47] VITALS: BP 112/82
== END 2019-02-22 17:49 | disposition home or self-care (01) ==
LOC: EMR 16:50
DX: N34.2 Other urethritis (principal); M25.552 Pain in left hip; J45.909 Unspecified asthma, uncomplicated; I10 Essential (primary) hypertension; B20 Human immunodeficiency virus [HIV] disease
CPT/HCPCS: 73510; 81003; 96372; 96374; J0696; Z7502; 73502; 99284

== ENCOUNTER 2019-08-27 08:46 | Emergency (ER) | payer OTHER ==
[~2019-08-27] VITALS: Ht 188 cm; Wt 90.7 kg
[2019-08-27 09:00] VITALS: BP 147/98
--- NOTE | 2019-08-27 09:00 | NUR ---
ED Nurse Note: Pt ambulated to ED from home with the c/o penile discharge. Pt denies pain or swelling, VSS, on triage. Placed on bed, Dr. Rivas at bedside.
[2019-08-27] MEDS ORDERED: DOXYCYCLINE MO100 MG ORAL (09:06)
[2019-08-27 09:13] VITALS: BP 144/98
--- NOTE | 2019-08-27 09:13 | NUR ---
ER DISCHARGE NOTE: Patient is cleared to be discharged per ERMD, pt is aox4, on room air, with stable vital signs. pt was given dc and prescription instructions, pt was able to verbalize understanding, pt id band removed. pt is able to ambulate with steady gait. pt took all belongings.
[2019-08-27] MEDS ORDERED: Lidocaine 1% MPF 10mg/ml 5ml INJ ONE (09:15)
--- NOTE | 2019-08-27 09:24 | Emergency Room Report ---
History of Present Illness General Chief Complaint: Male Urogenital Problems Source: Patient Present Illness HPI Patient is a 63 -year-old male presents after increased urethral discharge. Patient reports having increased dysuria. He had prior history of recent sex which she states condom broke. Denies any urinary hesitancy. Had not had any known testicular swelling. Patient is uncircumcised. He had not been having any penile pain. Reports having some urethral discharge which was mostly clear. Denies any other locations of pain. He states his CD4 count is normal and his viral load is undetectable. He reports being compliant with his medications. COVID-19 risk:Travel to affect: No Has patient experienced rubin: No Allergies: Coded Allergies: No Known Allergies (Unverified , 07/03/13) Patient History Past Medical History: see triage record Reviewed Nursing Documentation: PMH: Agreed; PSxH: Agreed Nursing Documentation-PMH Past Medical History: No History, Except For Hx Hypertension: Yes Hx Asthma: Yes Review of Systems All Other Systems: negative except mentioned in HPI Physical Exam Vital Signs Date Time Temp Pulse Resp B/P (MAP) Pulse Ox O2 Delivery O2 Flow Rate FiO2 08/27/19 08:56 97.3 92 18 147/98 (114) 97 Room Air General Appearance: well appearing, no apparent distress, alert, GCS 15 Head: normocephalic, atraumatic ENT: hearing grossly normal, normal voice Neck: full range of motion, supple Respiratory: lungs clear, normal breath sounds, no respiratory distress, speaking full sentences Gastrointestinal: normal inspection Genitourinary: other - Urethral discharge, uncircumcised male without any evidence of skin lesions Musculoskeletal: no calf tenderness Neurologic: normal gait Psychiatric: mood/affect normal Skin: no rash Medical Decision Making Diagnostic Impression: Primary Impression: Urethritis Additional Impression: Abnormal urogenital findings ER Course Patient presented for urethral discharge. Differential diagnosis include was not limited to urinary tract infection, urethritis, balanitis among others. Patient has a benign exam and does not appear to require any imaging or laboratory testing at this time. Patient appears to have urethral discharge consistent with sexual transmitted infection. Will be empirically treated for gonorrhea and chlamydia. Urinalysis was ordered due to patient's recent urinary symptoms. Patient was given prescription for doxycycline. He was advised to follow-up with his infectious disease doctor in the next few days. Advised to return if worse. The patient is advised to follow up with doctor in 1-2 days. Patient is advised to return if any worsening condition or if any changes in status that are concerning. This report is dictated with ActiViews dice manager software which may occasionally lead to discrepancies related to use of this software. Last Vital Signs Date Time Temp Pulse Resp B/P (MAP) Pulse Ox O2 Delivery O2 Flow Rate FiO2 08/27/19 09:13 97.3 68 20 144/98 99 Room Air Status: improved Disposition: HOME, SELF-CARE Condition: Stable Scripts Doxycycline Monohydrate* (DOXYCYCLINE MONOHYDRATE*) 100 Mg Capsule 100 MG ORAL Q12H, #20 CAP 0 Refills Prov: Jm Rivas MD 08/27/19 Referrals: NON PHYSICIAN (PCP) Patient Instructions: Urethritis, Adult Jm Rivas MD Aug 27, 2019 09:24
== END 2019-08-27 09:13 | disposition home or self-care (01) ==
LOC: EMR 09:10
DX: N34.2 Other urethritis (principal)
CPT/HCPCS: 96372; 96374; J0696; Z7502; 99284

== ENCOUNTER 2020-03-23 16:28 | Emergency (ER) | payer OTHER ==
[~2020-03-23] VITALS: Ht 188 cm; Wt 85.7 kg
[2020-03-23 16:41] VITALS: BP 106/74
--- NOTE | 2020-03-23 16:41 | NUR ---
ED Nurse Note: Pt walked in to ED c/o lower abdomial pain for x1 day. Pt reports burning sensation while urinating for couple days. Denies hematuria. AAOx4, verbally repsonsive. No SOB, on room air.
--- NOTE | 2020-03-23 16:51 | NUR ---
ED Nurse Note: Urine sent to lab.
[2020-03-23 17:24] LABS: APPEARANCE,URINE CLOUDY; BILIRUBIN, URINE NEGATIVE (NEGATIVE); GLUCOSE, URINE (UA) NEGATIVE (NEGATIVE); KETONES,URINE NEGATIVE (NEGATIVE); LEUKOCYTE ESTERASE ,URINE 3+ (NEGATIVE); NITRITE,URINE NEGATIVE (NEGATIVE); PH,URINE 6 (4.5-8.0); PROTEIN,URINE NEGATIVE (NEGATIVE); UROBILINOGEN,URINE 8 MG/DL (0.0-1.0)
[2020-03-23 17:25] LABS: COLOR,URINE YELLOW
[2020-03-23] MEDS ORDERED: Lidocaine 1% MPF 10mg/ml 5ml INJ ONE (17:30)
[2020-03-23] MEDS ORDERED: Phenazopyridine 200mg tab ORAL ONE (17:30)
--- NOTE | 2020-03-23 17:44 | Emergency Room Report ---
History of Present Illness General Chief Complaint: Abdominal Pain Source: Medical Record Present Illness HPI 64-year-old male with hx of HIV, HTN and Asthma presents to the emergency department complaining of 5 out of 10 severity dysuria x3 days. Patient denies penile discharge, testicular pain or tenderness. He denies abdominal pain or tenderness, fevers, chills, nausea or vomiting. Patient reports onset of symptoms were a couple days after having unprotected intercourse. Patient denies low back pain. He denies hematuria or urinary frequency. He denies rashes, sores or swollen tender lymph nodes. Allergies: Coded Allergies: No Known Allergies (Unverified , 07/03/13) COVID-19 Screening Contact w/high risk pt: No Experienced COVID-19 symptoms?: No COVID-19 Testing performed RETENTION SPECIALIST: Yes COVID-19 Screening: Negative COVID-19 COVID-19 Testing Source: NA Patient History Past Medical History: see triage record, HIV Pertinent Family History: none Reviewed Nursing Documentation: PMH: Agreed; PSxH: Agreed Nursing Documentation-PMH Past Medical History: No History, Except For Hx Hypertension: Yes Hx Asthma: Yes Review of Systems All Other Systems: negative except mentioned in HPI Physical Exam Vital Signs Date Time Temp Pulse Resp B/P (MAP) Pulse Ox O2 Delivery O2 Flow Rate FiO2 03/23/20 16:37 98.2 78 18 106/74 (85) 96 Room Air Sp02 EP Interpretation: reviewed, normal General Appearance: no apparent distress, alert, GCS 15, non-toxic Head: normocephalic, atraumatic Eyes: bilateral eye normal inspection, bilateral eye PERRL ENT: hearing grossly normal, normal voice Neck: full range of motion Respiratory: lungs clear, normal breath sounds, speaking full sentences Cardiovascular #1: regular rate, rhythm Gastrointestinal: normal bowel sounds, non tender, soft, non-distended, no guarding Rectal: deferred Genitourinary: normal inspection, no CVA tenderness, other - genital exam is deferred by pt. Musculoskeletal: back normal, normal range of motion, gait/station normal, non- tender Neurologic: alert, motor strength/tone normal, oriented x3, sensory intact, responsive, speech normal Psychiatric: judgement/insight normal Skin: no rash, normal color Medical Decision Making PA Attestation Dr. Gonzalez is my supervising Physician whom patient management has been discussed with. Diagnostic Impression: Primary Impression: Urethritis Additional Impression: UTI (urinary tract infection) Qualified Codes: N30.01 - Acute cystitis with hematuria ER Course [id number] male with hx of HIV, HTN and Asthma presents to the emergency department complaining of 5 out of 10 severity dysuria x3 days. Patient denies penile discharge, testicular pain or tenderness. He denies abdominal pain or tenderness, fevers, chills, nausea or vomiting. Patient reports onset of symptoms were a couple days after having unprotected intercourse. Patient denies low back pain. He denies hematuria or urinary frequency. He denies rashes, sores or swollen tender lymph nodes. Ddx considered but are not limited to UTi , Urethritis, LGV, STI, Stone, Cystitis, prostatitis Vital signs: are WNL, pt. is afebrile H&PE are most consistent with Urethritis ORDERS: - UA : Moderate bacteria, RBC's and elevated inflammatory markers indicating UTI ED INTERVENTIONS: -250mg Rocephin IM -Pyridium PO DISCHARGE: At this time pt. is stable for d/c to home. Will provide printed patient care instructions, and any necessary prescriptions. Care plan and follow up instructions have been discussed with the patient prior to discharge. Labs Test 03/23/20 16:51 Urine Color Yellow Urine Appearance Cloudy Urine pH 6 (4.5-8.0) Urine Specific [place] 1.015 (1.005-1.035) Urine Protein Negative (NEGATIVE) Urine Glucose (UA) Negative (NEGATIVE) Urine Ketones Negative (NEGATIVE) Urine Blood 2+ (NEGATIVE) Urine Nitrite Negative (NEGATIVE) Urine Bilirubin Negative (NEGATIVE) Urine Urobilinogen 8 MG/DL (0.0-1.0) Urine Leukocyte Esterase 3+ (NEGATIVE) Urine RBC 0-2 /HPF (0 - 0) Urine WBC Tntc /HPF (0 - 0) Urine Squamous Epithelial Cells None /LPF (NONE/OCC) Urine Bacteria Occasional /HPF (NONE) Last Vital Signs Date Time Temp Pulse Resp B/P (MAP) Pulse Ox O2 Delivery O2 Flow Rate FiO2 03/23/20 16:41 78 18 Room Air 03/23/20 16:41 98.2 106/74 96 Status: improved Disposition: HOME, SELF-CARE Condition: Stable Scripts Doxycycline Hyclate (DOXYCYCLINE HYCLATE) 100 Mg Tablet 100 MG PO BID for 7 Days, #14 TAB Prov: Madison Russell 03/23/20 Cephalexin* (KEFLEX*) 500 Mg Capsule 500 MG ORAL EVERY 12 HOURS for 7 Days, #14 CAP 0 Refills Prov: Madison Russell 03/23/20 Patient Instructions: Urethritis, Adult Madison Russell Mar 23, 2020 17:44
[2020-03-23] MEDS ORDERED: DOXYCYCLINE HY100 M6 PO (17:48)
[2020-03-23] MEDS ORDERED: CEPHALEXIN500 MG ORAL (17:48)
[2020-03-23 17:59] VITALS: BP 122/75
--- NOTE | 2020-03-23 18:00 | NUR ---
ER DISCHARGE NOTE: Patient is cleared to be discharged per PA, pt is aox4, on room air, with stable vital signs. pt was given dc and prescription instructions, pt was able to verbalize understanding, pt id band removed. pt is able to ambulate with steady gait. pt took all belongings.
== END 2020-03-23 17:59 | disposition home or self-care (01) ==
LOC: EMR 17:59
DX: N34.2 Other urethritis (principal); N30.01 Acute cystitis with hematuria; I10 Essential (primary) hypertension; B20 Human immunodeficiency virus [HIV] disease
CPT/HCPCS: 81003; 87086; 96372; 96374; J0696; Z7502; 99284

== ENCOUNTER 2020-05-10 09:55 | Emergency (ER) | payer OTHER ==
[~2020-05-10] VITALS: Ht 188 cm; Wt 90.7 kg
[~2020-05-10 09:55] MED LIST changes: +DOXYCYCLINE HY100 M6 PO
[2020-05-10] MEDS ORDERED: Ketorolac 30mg Inj IM ONE (10:00)
[2020-05-10 10:43] VITALS: BP 131/94
--- NOTE | 2020-05-10 10:43 | NUR ---
ED Nurse Note:pt. came with c/o cough, no SOB no fever
[2020-05-10] MEDS ORDERED: guaiFENesin 100mg/5ml Liq ud ONE (11:00)
[2020-05-10] MEDS ORDERED: guaiFENesin ER 600mg tab ORAL SCH (11:00)
[2020-05-10] MEDS ORDERED: guaiFENesin 100mg/5ml Liq ud ORAL PRN (11:15)
--- NOTE | 2020-05-10 11:29 | Emergency Room Report ---
History of Present Illness General Chief Complaint: Upper Respiratory Illness Source: Patient Present Illness HPI Patient is a 64-year-old male past medical history of HIV viral load undetectable who presents to the ER complaining of cough for 2 days. He states it is productive with whitish phlegm. He states he had a negative COVID-19 PCR 1 month ago. Patient denies any fever or chills. He denies any chest pain or shortness of breath. He denies any sick contacts. He denies any abdominal pain, nausea or vomiting. He denies any rash or neck stiffness. Allergies: Coded Allergies: No Known Allergies (Unverified , 07/03/13) COVID-19 Screening Contact w/high risk pt: No Experienced COVID-19 symptoms?: Yes COVID-19 Testing performed NURSE NAVIGATOR: No Patient History Social History: Reports: smoking Reviewed Nursing Documentation: PMH: Agreed; PSxH: Agreed Nursing Documentation-PMH Hx Hypertension: Yes Hx Asthma: Yes Review of Systems All Other Systems: negative except mentioned in HPI Physical Exam Vital Signs Date Time Temp Pulse Resp B/P (MAP) Pulse Ox O2 Delivery O2 Flow Rate FiO2 05/10/20 10:32 98.2 80 20 131/94 (106) 96 Room Air Sp02 EP Interpretation: reviewed, normal General Appearance: no apparent distress, alert, GCS 15, non-toxic Head: normocephalic, atraumatic Eyes: bilateral eye normal inspection, bilateral eye PERRL ENT: hearing grossly normal, normal pharynx, no angioedema, normal voice Neck: full range of motion, supple/symm/no masses Respiratory: no respiratory distress, no retraction, no accessory muscle use, other - Scattered rhonchi Cardiovascular #1: regular rate, rhythm Gastrointestinal: normal bowel sounds, non tender, soft, non-distended, no guarding, no rebound Rectal: deferred Musculoskeletal: normal range of motion Neurologic: product marketing programs manager III-XII nml as tested, oriented x3 Psychiatric: no suicidal/homicidal ideation Skin: no rash Lymphatic: no adenopathy Medical Decision Making Diagnostic Impression: Primary Impression: Bronchitis Additional Impression: Upper respiratory infection ER Course Patient's vital signs are stable. Patient is requesting cough medication. Patient's chest x-ray demonstrates no acute cardiopulmonary pathology. Due to the patient's history of HIV and scattered rhonchi on exam I have given a prescription for azithromycin as well. COVID-19 PCR is pending. We will call the patient with positive in the next 24 hours. Patient advised to self quarantine until that time. After discussing risks and benefits of further diagnostics, treatment plans, as well as indications for and risks of admission, the patient is agreeable to being discharged home. I have explained that their evaluation and treatment in the emergency department today is an important step towards them achieving better health but that their evaluation today is not intended to replace further evaluation and treatment by a physician in their [facility] clinic. I have explained that while the current findings suggest no immediate life threatening emergency they will require further evaluation and treatment by a physician of their choice in their area. They understand that it will be necessary for them to review the final reports of their ED visit with their clinic physician. We have reviewed indications for return to the E mergency Department. I have explained that additional time may need to pass and/or additional testing as an outpatient may be necessary before a definitive diagnosis can be made. They tell me they are willing to follow up as instructed within the timeframe I recommend. They appear to understand what we discussed. Additionally they understand that if they are unable to be seen by an outpatient physician they are welcome, and in fact should, return to the Emergency Department for a repeat evaluation. The patient is stable at time of discharge. Chest X-Ray Diagnostic Results Chest X-Ray Diagnostic Results : Chest X-Ray Ordered: Yes # of Views/Limited/Complete: 1 View Indication: Other - cough EP Interpretation: Yes Interpretation: no consolidation, no effusion, no pneumothorax, no acute cardiopulmonary disease Impression: No acute disease Electronically Signed by: Fariba Singh MD Last Vital Signs Date Time Temp Pulse Resp B/P (MAP) Pulse Ox O2 Delivery O2 Flow Rate FiO2 05/10/20 10:43 80 20 Room Air 05/10/20 10:43 98.2 131/94 96 Disposition: HOME, SELF-CARE Condition: Stable Scripts Azithromycin* (ZITHROMAX*) 250 Mg Tablet 250 MG ORAL DAILY, #6 TAB 0 Refills Take two tables once daily for 1 day, then one tablet once daily for 4 days. Prov: Fariba Singh M.D. 05/10/20 Codeine/Promethazine Hcl* (PROMETHAZINE-CODEINE SYRUP*) 118 Ml Syrup 5 ML ORAL Q4H PRN for For Cough, #118 ML 0 Refills Prov: Fariba Singh M.D. 05/10/20 Additional Instructions: The patient was provided with discharge instructions, notified to follow-up with a primary care doctor and or specialist in the next 24-48 hours, and to return to the ED if they have worsening of their symptoms. Please note that this report is being documented using [employer] technology. This can lead to erroneous entry secondary to incorrect interpretation by the dictating instrument. Fariba Singh M.D. May 10, 2020 11:29
[2020-05-10] MEDS ORDERED: PROMETHAZINE-C118 M1 ORAL (11:33)
[2020-05-10] MEDS ORDERED: ZITHROMAX250 MG ORAL (11:33)
[2020-05-10 11:35] VITALS: BP 131/94
--- NOTE | 2020-05-10 11:35 | NUR ---
ED Nurse Note: Pt cleared by health care Provider for discharge. DC instructions/prescription was given and explained to pt and verbalized understanding of teachings. All medical deviecs such as ID band removed. Pt is AAO x4, ambulatory and left with all personal belongings.
--- NOTE | 2020-05-10 16:44 | Diagnostic Imaging Report ---
Indication: Cough Technique: One view of the chest Comparison: 04/28/2017 Findings: Lungs and pleural spaces are clear. Heart size is normal. Aorta is tortuous. There is no significant interim change Impression: No acute process
== END 2020-05-10 11:35 | disposition home or self-care (01) ==
LOC: EMR 11:30
DX: J40 Bronchitis, not specified as acute or chronic (principal); J06.9 Acute upper respiratory infection, unspecified; I10 Essential (primary) hypertension; B20 Human immunodeficiency virus [HIV] disease
CPT/HCPCS: 71045; 96372; U0004; Z7502; 99283